=== PATIENT | male | born 1985 | race Caucasian/White ===

== ENCOUNTER → 2020-07-18 | Outpatient (CLI) | payer BC ==
--- NOTE | 2020-07-18 11:30 | REP ---
INDICATION: BURSITIS FRANNIE HIPS, LBP. COMPARISON: None. TECHNIQUE: Sagittal T1, T2, STIR, axial T1 and T2 weighted images of the lumbar spine are obtained. FINDINGS: There is only mild multilevel degenerative disc disease, vertebral heights and disc heights are overall preserved. Disc signals are preserved. On the sagittal T2 weighted images, the conus ends normally at L1 level. No significant canal stenosis. On the review of axial images, no significant canal or foraminal narrowing at any lumbar level. IMPRESSION: No acute findings. No limiting canal or foraminal stenosis. No disc herniation identified. <Electronically signed by Suleman Tovar > 07/18/20 [id number]
--- NOTE | 2020-07-18 12:44 | REP ---
INDICATION: BURSITIS FRANNIE HIPS, LBP. COMPARISON: None. TECHNIQUE: Multiple sequences obtained in the axial, coronal and sagittal planes. FINDINGS: There is no bone marrow edema or occult fracture. There is a tiny subcentimeter subchondral cyst in the right iliac bone along the sacroiliac joint. There is no evidence of sacroiliitis. The soft tissue structures of the pelvis demonstrate normal signal. There is no fluid collection or ganglion cyst. There is not significant bursitis visualized in either hip region. No joint effusion is seen. No adenopathy or free fluid is seen in the pelvis. The pelvic structures otherwise appear unremarkable. Anterior abdominal wall is intact. No inguinal hernia is seen. IMPRESSION: Tiny subchondral cyst in the right iliac bone along the right sacroiliac joint. No bone marrow edema. No occult fracture or sacroiliitis. No soft tissue abnormality identified as discussed above. <Electronically signed by Christophe Perez > 07/18/20 [id number]
== END ==
LOC: M RAD 09:46
PROVIDERS: ATTEND Physician Assistant
DX: M70.61 Trochanteric bursitis, right hip (principal); M70.62 Trochanteric bursitis, left hip; M54.5 Low back pain

== ENCOUNTER → 2021-01-11 | Outpatient (CLI) | payer BC | LOC: M RAD 17:10 | PROVIDERS: ATTEND Psychiatry & Neurology Neurology | DX: R53.1 Weakness (principal); Z53.9 Procedure and treatment not carried out, unspecified reason ==

== ENCOUNTER → 2021-10-14 | Outpatient (REF) | payer BC ==
[2021-10-14 21:29] LABS: ALBUMIN 4.2 GM/DL (3.2-5.2); ALT/SGPT 19 U/L (12-78); BILIRUBIN,TOTAL 0.7 MG/DL (0.2-1.0); BLOOD UREA NITROGEN 14 MG/DL (7-18); CALCIUM LEVEL 9.2 MG/DL (8.5-10.1); CARBON DIOXIDE LEVEL 29 MEQ/L (21-32); CHLORIDE LEVEL 106 MEQ/L (98-107); GLOMERULAR FILTRATION RATE > 60.0 (>60); GLUCOSE, FASTING 73 MG/DL (70-100); POTASSIUM SERUM 3.8 MEQ/L (3.5-5.1); SODIUM LEVEL 138 MEQ/L (136-145); TOTAL PROTEIN 7.1 GM/DL (6.4-8.2)
== END ==
LOC: M LAB REF 15:25
PROVIDERS: ATTEND Emergency Medicine
DX: M62.81 Muscle weakness (generalized) (principal); M62.59 Muscle wasting and atrophy, not elsewhere classified, multiple sites; R63.4 Abnormal weight loss; R53.83 Other fatigue

== ENCOUNTER → 2021-10-17 | Outpatient (CLI) | payer BC | LOC: M LAB 12:10 | PROVIDERS: ATTEND Emergency Medicine | DX: M62.81 Muscle weakness (generalized) (principal); M62.59 Muscle wasting and atrophy, not elsewhere classified, multiple sites; K90.0 Celiac disease; R53.83 Other fatigue; M25.50 Pain in unspecified joint ==

== ENCOUNTER → 2021-10-29 | Outpatient (REF) | payer BC ==
[2021-10-29 18:06] LABS: HEMATOCRIT 41.5 % (42.0-52.0); HEMOGLOBIN 14.3 g/dl (13.5-17.5); MEAN CORPUSCULAR HEMOGLOBIN 31.6 pg (27.0-33.0); MEAN CORPUSCULAR HGB CONC 34.5 g/dl (32.0-36.5); MEAN CORPUSCULAR VOLUME 91.6 fl (80.0-96.0); PLATELET COUNT, AUTOMATED 179 10^3/uL (150-450); RED BLOOD COUNT 4.53 10^6/uL (4.30-6.10); WHITE BLOOD COUNT 4.8 10^3/uL (4.0-10.0)
[2021-10-29 19:00] LABS: ALBUMIN 4.2 GM/DL (3.2-5.2); ALT/SGPT 22 U/L (12-78); BILIRUBIN,TOTAL 0.9 MG/DL (0.2-1.0); BLOOD UREA NITROGEN 17 MG/DL (7-18); CALCIUM LEVEL 9.1 MG/DL (8.5-10.1); CARBON DIOXIDE LEVEL 29 MEQ/L (21-32); CHLORIDE LEVEL 105 MEQ/L (98-107); CREATININE FOR GFR 0.74 MG/DL (0.70-1.30); GLOMERULAR FILTRATION RATE > 60.0 (>60); GLUCOSE, FASTING 85 MG/DL (70-100); POTASSIUM SERUM 4.2 MEQ/L (3.5-5.1); SODIUM LEVEL 138 MEQ/L (136-145); TOTAL PROTEIN 6.9 GM/DL (6.4-8.2)
== END ==
LOC: M LAB REF 16:45
PROVIDERS: ATTEND Emergency Medicine
DX: Z00.00 Encounter for general adult medical examination without abnormal findings (principal)

== ENCOUNTER → 2021-11-11 | Outpatient (REF) | payer BC ==
[2021-11-11 18:09] LABS: HEMOGLOBIN 14.3 g/dl (13.5-17.5); MEAN CORPUSCULAR HEMOGLOBIN 31.4 pg (27.0-33.0); MEAN CORPUSCULAR VOLUME 92.1 fl (80.0-96.0); PLATELET COUNT, AUTOMATED 170 10^3/uL (150-450); RED BLOOD COUNT 4.56 10^6/uL (4.30-6.10); WHITE BLOOD COUNT 4.6 10^3/uL (4.0-10.0)
[2021-11-11 20:54] LABS: ALT/SGPT 22 U/L (12-78); BILIRUBIN,TOTAL 0.8 MG/DL (0.2-1.0); BLOOD UREA NITROGEN 13 MG/DL (7-18); CALCIUM LEVEL 9.1 MG/DL (8.5-10.1); CARBON DIOXIDE LEVEL 29 MEQ/L (21-32); CHLORIDE LEVEL 105 MEQ/L (98-107); CREATININE FOR GFR 0.81 MG/DL (0.70-1.30); GLOMERULAR FILTRATION RATE > 60.0 (>60); GLUCOSE, FASTING 97 MG/DL (70-100); POTASSIUM SERUM 4.2 MEQ/L (3.5-5.1); SODIUM LEVEL 140 MEQ/L (136-145); TOTAL PROTEIN 6.8 GM/DL (6.4-8.2)
== END ==
LOC: M LAB REF 16:57
PROVIDERS: ATTEND Emergency Medicine
DX: Z00.00 Encounter for general adult medical examination without abnormal findings (principal)

== ENCOUNTER → 2023-03-20 | Outpatient (CLI) | payer BC | LOC: M PLARAD 07:57 | DX: G44.52 New daily persistent headache (NDPH) (principal); H53.9 Unspecified visual disturbance; H93.19 Tinnitus, unspecified ear; G60.9 Hereditary and idiopathic neuropathy, unspecified ==

== ENCOUNTER → 2024-04-26 | Outpatient (CLI) | payer BC | LOC: M RAD 07:20 | PROVIDERS: ATTEND Internal Medicine Rheumatology | DX: M54.50 Low back pain, unspecified (principal); N40.0 Benign prostatic hyperplasia without lower urinary tract symptoms ==

== ENCOUNTER → 2024-12-07 | Outpatient (REF) | payer BC ==
[2024-12-07 18:07] LABS: APPEARANCE, URINE CLEAR (CLEAR); BACTERIA, URINE AUTO NEGATIVE (NEGATIVE); BILIRUBIN, URINE AUTO NEGATIVE (NEGATIVE); BLOOD, URINE BLOOD NEGATIVE (NEGATIVE); GLUCOSE, URINE (UA) AUTO NEGATIVE (NEGATIVE); KETONE, URINE AUTO NEGATIVE (NEGATIVE); LEUKOCYTE ESTERASE, URINE AUTO NEGATIVE (NEGATIVE); MUCUS, URINE SMALL (NEGATIVE); NITRITE, URINE AUTO NEGATIVE (NEGATIVE); PROTEIN, URINE AUTO NEGATIVE (NEGATIVE); RBC, URINE AUTO 1 /HPF (0-3); SPECIFIC GRAVITY URINE AUTO 1.025 (1.002-1.035); SQUAMOUS EPITHELIAL CELL UR AU 0 /HPF (0-6); UROBILINOGEN, URINE AUTO 2.0 mg/dL (0.0-2.0); WBC, URINE AUTO 0 /HPF (0-3)
== END ==
LOC: M SMT 14:37
PROVIDERS: ATTEND Nurse Practitioner Family
DX: N49.0 Inflammatory disorders of seminal vesicle (principal)